=== PATIENT | female | born 1985 | race African-American/Black ===

== ENCOUNTER 2021-04-15 10:12 | Emergency (ER) | payer MEDICAID ==
[~2021-04-15] VITALS: Ht 170.2 cm; Wt 92.0 kg
[2021-04-15] MEDS ORDERED: LIDOCAINE HCL/PF 1% 10 MG/ML 5ML VIAL INFIL ONE (10:30)
[2021-04-15] MEDS ORDERED: ACETAMINOPHEN WITH CODEINE 300/30MG TABLET PO ONE (10:30)
[2021-04-15] MEDS ORDERED: BACITRACIN ZINC OINT UDPKT TOP ONE (10:30)
[2021-04-15] MEDS ORDERED: LIDOCAINE HCL 1% 20ML VIAL (Pyxis) INJ INFIL NR (10:45)
[2021-04-15] MEDS ORDERED: SULF1TAB48 MT (11:56)
[2021-04-15] MEDS ORDERED: CEPH500C2 MT (11:56)
[2021-04-15 12:18] VITALS: BP 135/75
== END 2021-04-15 12:19 | disposition home or self-care (01) ==
LOC: ER 11:40
DX: L02.411 Cutaneous abscess of right axilla (principal); Z98.890 Other specified postprocedural states
CPT/HCPCS: 10060; 99283; A4217; J3490